=== PATIENT | female | born 1965 | race Caucasian/White ===

== ENCOUNTER 2017-05-28 12:08 | Emergency (ER) | payer OTHER ==
[~2017-05-28] VITALS: Ht 162.6 cm; Wt 99.8 kg
[2017-05-28 12:13] VITALS: BP_SYST 160
[2017-05-28] MEDS ORDERED: NACL 0.9% 1,000 ML IV ONE (12:45)
[2017-05-28 13:11] LABS: BASOPHILS % (AUTO) 0.8 % (0.0-2.0); EOSINOPHILS # (AUTO) 0.1 K/uL (0.0-0.4); EOSINOPHILS % (AUTO) 1.5 % (0.0-4.0); HEMATOCRIT 38.8 % (36-48); HEMOGLOBIN 13.3 g/dL (12.0-16.0); LYMPHOCYTES % (AUTO) 31.8 % (20.5-51.5); MEAN CORPUSCULAR HEMOGLOBIN 30 pg (27-31); MEAN CORPUSCULAR HGB CONC 34 % (32-36); MEAN CORPUSCULAR VOLUME 87 fL (79.0-98.0); MONOCYTES # (AUTO) 0.4 K/uL (0.0-1.0); MONOCYTES % (AUTO) 7.1 % (1.7-9.3); NEUTROPHILS # (AUTO) 3.7 K/uL (1.8-7.7); NEUTROPHILS % (AUTO) 58.8 % (40.0-70.0); PLATELET COUNT (AUTO) 188 K/uL (130-430); RED BLOOD CELL COUNT(AUTO) 4.48 MIL/uL (4.2-6.2); RED CELL DISTRIBUTION WIDTH 13.6 % (9.0-15.0); WHITE BLOOD COUNT (AUTO) 6.2 K/uL (4.8-10.8)
[2017-05-28 13:26] LABS: CALCIUM 8.9 mg/dL (8.4-11.0); CREATININE 0.92 mg/dL (0.55-1.30); POTASSIUM 4.6 mmol/L (3.5-5.1)
[2017-05-28 13:30] LABS: ALBUMIN 3.7 g/dL (3.4-4.8); TOTAL BILIRUBIN 0.5 mg/dL (0.0-1.0)
[2017-05-28 15:36] VITALS: BP_SYST 118
== END 2017-05-28 14:22 | disposition home or self-care (01) ==
LOC: SED 12:08
DX: E86.0 Dehydration (principal); R42 Dizziness and giddiness; R03.0 Elevated blood-pressure reading, without diagnosis of hypertension; F17.210 Nicotine dependence, cigarettes, uncomplicated; Z71.6 Tobacco abuse counseling; Z88.0 Allergy status to penicillin; Z88.1 Allergy status to other antibiotic agents; Z88.5 Allergy status to narcotic agent
CPT/HCPCS: 36415; 80053; 84484; 85025; 93005; 96360; 99285; J7030

== ENCOUNTER 2018-07-03 10:49 | Emergency (ER) | payer OTHER ==
[~2018-07-03] VITALS: Ht 162.6 cm; Wt 90.7 kg
[2018-07-03 11:01] VITALS: BP_SYST 157
--- NOTE | 2018-07-03 11:01 | NUR ---
Placed in room 2. Placed on residential monitor, blood pressure machine and pulse oximeter. To gown for exam. Side rails up. Report endorsed to ANA pedraza.
--- NOTE | 2018-07-03 11:03 | NUR ---
MARKUS Lay at bedside examining patient.
--- NOTE | 2018-07-03 11:10 | NUR ---
Pt complaining of mid back pain (T-10) 10/, and stated it was sudden onset while sitting at desk at work. Py states she is SOB and feels "clammy" . SPO2 100% on room air. Pt stated she fell 3 days ago and landed on her knees, but did not feel she needed to f/o with medical treatment. Pt AO x 4, speaks Sinhala and is cooperative.
[2018-07-03] MEDS ORDERED: MORPHINE 4 MG/ML INJ. SYRINGE IVP ONE (11:15)
[2018-07-03] MEDS ORDERED: ONDANSETRON HCL 4 MG/2 ML VIAL IVP ONE (11:15)
[2018-07-03] MEDS ORDERED: ASPIRIN 325 MG TABLET (ECOTRIN) PO ONE (11:15)
[2018-07-03 11:58] LABS: BASOPHILS % (AUTO) 0.5 % (0.0-2.0); EOSINOPHILS % (AUTO) 0.7 % (0.0-4.0); HEMATOCRIT 41.9 % (36-48); HEMOGLOBIN 13.7 g/dL (12.0-16.0); LYMPHOCYTES # (AUTO) 1.4 K/uL (1.0-5.5); LYMPHOCYTES % (AUTO) 22.6 % (20.5-51.5); MEAN CORPUSCULAR HEMOGLOBIN 29 pg (27-31); MEAN CORPUSCULAR HGB CONC 33 % (32-36); MEAN CORPUSCULAR VOLUME 88 fL (79.0-98.0); MONOCYTES # (AUTO) 0.2 K/uL (0.0-1.0); MONOCYTES % (AUTO) 3.9 % (1.7-9.3); NEUTROPHILS # (AUTO) 4.3 K/uL (1.8-7.7); NEUTROPHILS % (AUTO) 72.3 % (40.0-70.0); PLATELET COUNT (AUTO) 138 K/uL (130-430); RED BLOOD CELL COUNT(AUTO) 4.76 MIL/uL (4.2-6.2); RED CELL DISTRIBUTION WIDTH 14.5 % (9.0-15.0)
[2018-07-03 12:12] LABS: ANION GAP 11 (5-15); CHLORIDE 104 mmol/L (98-107); CREATININE 0.91 mg/dL (0.55-1.30); GLUCOSE 103 mg/dL (70-99); POTASSIUM 3.9 mmol/L (3.5-5.1); SODIUM SERUM 140 mmol/L (136-145); UREA NITROGEN, BLOOD 19 mg/dL (8-21)
[2018-07-03 12:21] LABS: ALANINE AMINOTRANSFERASE 40 U/L (12-78); ALBUMIN 3.6 g/dL (3.4-4.8); ASPARTATE AMINOTRANSFERASE 60 U/L (10-37); LIPASE 136 U/L (73-393); TOTAL BILIRUBIN 0.8 mg/dL (0.0-1.0)
[2018-07-03 12:23] LABS: GFR AFRICAN AMERICAN 83 mL/min (>90)
[2018-07-03] MEDS ORDERED: LACTULOSE 20 GM/30 ML UDC PO ONE (12:30)
[2018-07-03 13:07] VITALS: BP_SYST 142
== END 2018-07-03 12:51 | disposition home or self-care (01) ==
LOC: SED 10:49
DX: K59.00 Constipation, unspecified (principal); R11.2 Nausea with vomiting, unspecified; R03.0 Elevated blood-pressure reading, without diagnosis of hypertension; E78.00 Pure hypercholesterolemia, unspecified; Z90.710 Acquired absence of both cervix and uterus; Z88.0 Allergy status to penicillin; Z88.5 Allergy status to narcotic agent; Z88.6 Allergy status to analgesic agent
CPT/HCPCS: 36415; 71045; 74176; 80053; 83690; 83880; 84484; 85025; 85379; 96374; 96375; 99284; J2270; J2405

== ENCOUNTER 2018-11-30 18:23 | Emergency (ER) | payer OTHER ==
--- NOTE | 2018-11-30 19:41 | NUR ---
Called pt, not in waiting room.
--- NOTE | 2018-11-30 20:00 | NUR ---
Pt called, not in waiting room.
--- NOTE | 2018-11-30 20:15 | NUR ---
Pt called, not in waiting room. Pt LWBS.
== END 2018-11-30 20:15 | disposition left against medical advice (07) ==
LOC: SED 18:23
DX: R11.2 Nausea with vomiting, unspecified (principal); Z53.21 Procedure and treatment not carried out due to patient leaving prior to being seen by health care provider